=== PATIENT | male | born 1935 | race Caucasian/White ===

== ENCOUNTER → 2019-04-20 08:53 | Outpatient (CLI) | payer OTHER, SELFPAY ==
--- NOTE | 2019-04-23 15:23 | PM.PFT.1 ---
Pulmonary Function Test Referral & Results Date Patient Seen: 04/20/19 Requesting provider: Noemi Ledesma Results: The spirometry demonstrates an FVC of 3.87 L which is 90% of predicted. The FEV1 was measured at 1.86 L which is 81% minimum of predicted. The FEV1/FVC ratio was 48 which is 67% of predicted. Following the administration of bronchodilator there was a 14% improvement in FEV1 and a 43% improvement in FEF 25-75%. Lung volumes show an SVC of 3.76 L which is 80% of predicted. The diffusing capacity was measured at 12.78 which is 36% of predicted. No hemoglobin value was provided, so no correction for potential anemia could be made, if appropriate. The maximum voluntary ventilation was reduced Interpretation: This study demonstrates moderately severe obstructive lung disease with evidence of benefit following bronchodilator particularly small airway flow based on improvement in FEF 25-75% There is also some very mild restrictive lung disease present There is much more significant disease of the capillary alveolar level based on reduction in diffusing capacity as well Clinical correlation suggested
== END ==
PROVIDERS: PCP Physician Assistant; Visit Provider Physician Assistant
DX: J44.9 Chronic obstructive pulmonary disease, unspecified (principal)
CPT/HCPCS: 94060; 94726; 94729

== ENCOUNTER → 2019-08-20 09:30 | Outpatient (CLI) | payer OTHER, SELFPAY | PROVIDERS: PCP Physician Assistant; Visit Provider Orthopaedic Surgery | DX: Z01.818 Encounter for other preprocedural examination (principal) | CPT/HCPCS: 93005 ==

== ENCOUNTER → 2020-02-22 11:13 | Outpatient (CLI) | payer OTHER, SELFPAY ==
[2020-02-22 12:59] LABS: Blood Urea Nitrogen 23 mg/dL (9-20); Calcium 9.2 mg/dL (8.4-10.2); Carbon Dioxide 27 mmol/L (22-32); Chloride 101 mmol/L (98-107); Estimated Glomerular Filt Rate 57.3 mL/min (>60); Glucose 110 mg/dL (80-110); HEMOLYSIS < 15 (0-50); Potassium 4.2 mmol/L (3.4-5.1); Sodium 135 mmol/L (137-145)
[2020-02-22 13:34] LABS: Add Manual Diff / Slide Review NO; Basophils Absolute Auto 100 /uL (0-100); Basophils Percent Auto 1.9 % (0-2); Eosinophils Absolute Auto 300 /uL (0-450); Eosinophils Percent Auto 6.3 % (2-4); Hematocrit 42.5 % (41-53); Hemoglobin 14.9 g/dL (13.5-17.5); Lymphocytes Absolute Auto 1700 /uL (1100-4500); Lymphocytes Percent Auto 30.8 % (25-40); Mean Corpuscular Hemoglobin 34.1 PG (26-34); Mean Corpuscular Volume 97.6 fL (80-100); Monocytes Absolute Auto 600 /uL (0-900); Monocytes Percent Auto 10.9 % (3-14); Neutrophils Absolute Auto 2700 /uL (1500-7000); Neutrophils Percent Auto 50.1 % (50-75); Platelet Count 156 X10^3/uL (150-400); Red Blood Cell Count 4.36 X10^6/uL (4.5-5.9); Red Cell Distribution Width 13.5 % (11.6-14.8); White Blood Cell Count 5.4 X10^3/uL (4.5-11.0)
== END ==
PROVIDERS: PCP Physician Assistant; Referring Provider Internal Medicine Cardiovascular Disease; Visit Provider Internal Medicine Cardiovascular Disease
DX: I25.10 Atherosclerotic heart disease of native coronary artery without angina pectoris (principal)
CPT/HCPCS: 36415; 80048; 85025

== ENCOUNTER → 2021-12-25 12:03 | Outpatient (CLI) | payer OTHER, SELFPAY ==
--- NOTE | 2021-12-25 | DI.RAD.S_ITS ---
PROCEDURE: XR CHEST 2V INDICATIONS: DYSPNEA TECHNIQUE: 2 views of the chest were acquired. COMPARISON: None. FINDINGS: Surgical changes and devices: None. Lungs and pleura: Lungs are clear. No pleural effusions or pneumothorax. Mediastinum: Mediastinal contours are normal. Heart size is normal. Atherosclerotic vascular calcification noted in the aortic arch. Bones and chest wall: No suspicious bony abnormalities. Soft tissues appear unremarkable. Old healed right-sided rib fractures IMPRESSION: No acute cardiopulmonary findings Approved by: Javier Pacheco M.D. on 12/25/2021 at 16:24
== END ==
PROVIDERS: PCP Physician Assistant; Referring Provider Physician Assistant; Visit Provider Physician Assistant
DX: R06.00 Dyspnea, unspecified (principal)
CPT/HCPCS: 71046

== ENCOUNTER → 2021-12-30 08:29 | Outpatient (CLI) | payer OTHER, SELFPAY ==
--- NOTE | 2021-12-30 08:37 | DI.CT.S_ITS ---
PROCEDURE: CT CHEST W CON INDICATIONS: DYSPNEA TECHNIQUE: After the administration of intravenous contrast, 5 mm thick sections acquired from the pulmonary apices to the posterior costophrenic angles. 1 mm axial lung, 5 mm thick coronal and sagittal reformats and 7 mm axial MIP were acquired. For radiation dose reduction, the following was used: automated exposure control, adjustment of mA and/or kV according to patient size. COMPARISON: None. FINDINGS: Image quality: Good. Lungs and pleura: Severe centrilobular emphysematous change most pronounced at the upper lobes. No acute air space opacities. No pleural effusions or pneumothorax. Central and peripheral airways are patent and normal in caliber. Mediastinum: Heart size is normal. Three-vessel coronary artery calcifications. Mild aortic valvular calcifications. Trace pericardial effusion. No mediastinal or hilar adenopathy by size criteria. Thoracic aorta and central pulmonary arteries are normal in size. Dense plaque at the right brachiocephalic artery origin. Moderate plaque in the left subclavian artery. Extensive plaque in the aortic arch. No central pulmonary embolism. Esophagus is normal in caliber. No hiatal hernia. Bones and chest wall: Prior right-sided rib fractures. No suspicious bony lesions. No vertebral body compression fractures. No axillary or supraclavicular adenopathy by size criteria. Course right thyroid calcification. Abdomen: Visualized upper abdominal solid organs appear normal. Upper abdominal bowel loops are normal in caliber. IMPRESSION: 1. Severe upper lobe predominant emphysematous change. 2. No acute airspace opacity. No pleural effusion. 3. No significant pulmonary nodules demonstrated. 4. Advanced atherosclerotic disease. Dictated by: Sekou Moore M.D. on 12/30/2021 at 9:40 Approved by: Sekou Moore M.D. on 12/30/2021 at 9:47
[2021-12-30 08:59] LABS: Estimated Glomerular Filt Rate 58 mL/min (>60)
== END ==
PROVIDERS: PCP Physician Assistant; Referring Provider Physician Assistant; Visit Provider Physician Assistant
DX: R06.00 Dyspnea, unspecified (principal); I25.10 Atherosclerotic heart disease of native coronary artery without angina pectoris; J43.9 Emphysema, unspecified
CPT/HCPCS: 36415; 71260; 82565; Q9967

== ENCOUNTER → 2023-01-27 09:48 | Outpatient (CLI) | payer OTHER, SELFPAY ==
--- NOTE | 2023-01-27 09:59 | DI.RAD.S_ITS ---
PROCEDURE: XR CHEST 2V INDICATIONS: SHORTNESS OF BREATH TECHNIQUE: 2 views of the chest were acquired. COMPARISON: CT, CT CHEST W CON, 12/30/2021, 9:08. [facility], CR, XR CHEST 2V, 12/25/2021, 12:06. FINDINGS: Surgical changes and devices: None. Lungs and pleura: Mild appearance of retrocardiac and right basilar opacity. Mediastinum: Mediastinal contours are normal. Heart size is normal. Bones and chest wall: No suspicious bony abnormalities. Soft tissues appear unremarkable. IMPRESSION: Mild retrocardiac and right basilar opacity. Developing pneumonia should be considered. Dictated by: Caty Keys M.D. on 01/27/2023 at 14:17 Approved by: Caty Keys M.D. on 01/27/2023 at 14:17
== END ==
PROVIDERS: PCP Physician Assistant; Referring Provider Physician Assistant; Visit Provider Physician Assistant
DX: R06.02 Shortness of breath (principal)
CPT/HCPCS: 71046

== ENCOUNTER → 2023-05-02 10:06 | Outpatient (CLI) | payer OTHER, SELFPAY ==
[2023-05-02 11:34] LABS: Estimated Glomerular Filt Rate > 60 mL/min (>60)
== END ==
PROVIDERS: PCP Physician Assistant; Referring Provider Specialist; Visit Provider Specialist
DX: Z01.812 Encounter for preprocedural laboratory examination (principal)
CPT/HCPCS: 36415; 82565

== ENCOUNTER → 2023-05-02 10:42 | Outpatient (CLI) | payer OTHER, SELFPAY ==
--- NOTE | 2023-05-02 10:43 | DI.CT.S_ITS ---
PROCEDURE: CT PELVIS W CON INDICATIONS: breakdown of implanted penile prosthesis TECHNIQUE: After the administration of intravenous contrast, 5 mm thick sections acquired from the iliac crests to the symphysis. 5 mm coronal and sagittal reformats were acquired. For radiation dose reduction, the following was used: automated exposure control, adjustment of mA and/or kV according to patient size. COMPARISON: None. FINDINGS: Image quality: Excellent. 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 A portion of the implant is present anterior to the bladder on the left (series 2, image 31), while the remaining segment is located in the right lower quadrant (series 2, image 36). Partial colectomy, surgical anastomosis in the deep pelvis. Normal appendix. Colonic diverticulosis without evidence of diverticulitis. Genitourinary: Bladder wall thickness is normal. Nodes and vessels: No iliac, pelvic, or inguinal adenopathy by size criteria. Iliac vessels demonstrate normal size and enhancement. Bones: No suspicious bony lesions. Miscellaneous: No inguinal hernias. 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 Dictated by: Agustin Muñiz M.D. on 05/02/2023 at 13:57 Approved by: Agustin Muñiz M.D. on 05/02/2023 at 14:01
== END ==
PROVIDERS: PCP Physician Assistant; Referring Provider Specialist; Visit Provider Specialist
DX: Z01.812 Encounter for preprocedural laboratory examination (principal); T83.410A Breakdown (mechanical) of implanted penile prosthesis, initial encounter
CPT/HCPCS: 36415; 72193; 82565; Q9967

== ENCOUNTER → 2024-12-26 08:55 | Outpatient (CLI) | payer MEDICARE, SELFPAY | PROVIDERS: PCP Physician Assistant; Visit Provider Urology | DX: N40.1 Benign prostatic hyperplasia with lower urinary tract symptoms (principal); R35.1 Nocturia; R39.9 Unspecified symptoms and signs involving the genitourinary system | CPT/HCPCS: 51798; 81002; 87077; 87086; 87186; 99213 ==

== ENCOUNTER → 2025-06-06 11:08 | Outpatient (CLI) | payer MEDICARE, SELFPAY | LOC: PHYS 11:09 | PROVIDERS: Family Provider Physician Assistant; Referring Provider Physician Assistant Surgical; Visit Provider Physician Assistant Surgical | DX: M79.644 Pain in right finger(s) (principal); M72.0 Palmar fascial fibromatosis [Dupuytren]; R20.2 Paresthesia of skin | CPT/HCPCS: 95886; 95910 ==